=== PATIENT | female | born 1930 | race Caucasian/White ===

== ENCOUNTER 2019-03-07 17:31 | Observation (INO) | payer OTHER ==
--- NOTE | 2019-03-07 17:41 | EDPHY ---
HPI/HX/ROS/PE/MDM Narrative: CHIEF COMPLAINT: Altered mental status HPI: This patient is an anticoagulated (Coumadin) 88 year old female with history of dementia, CHF, hypothyroid. She is currently visiting from [place], family is at bedside. Her daughter notes that yesterday she seemed quiet, but well. Today, she has been irritable and behaving abnormally. She disappeared in a store earlier today, pulled her pants down and urinated in public. Her daughters note she does not seem to recognize them, which is unusual. They endorse similar occurrences when the patient has been admitted for CHF in the past. The patient has not endorsed any chest pain to her daughters. They have not observed any notable unilateral weakness, but did notice that she seemed somewhat off- balance today. They deny any recent trauma including head injuries. No fever. HPI obtained primarily from patient's daughters at bedside, as the patient is not speaking. REVIEW OF SYSTEMS: A comprehensive 10 system review of systems is otherwise negative aside from elements mentioned in the history of present illness and medical decision making. PMH: Dementia, CHF, hypothyroid. Anticoagulated (Coumadin) SOCIAL HISTORY: Lives in [place]. Daughters at bedside. PHYSICAL EXAM: General:Patient is awake, and interactive, but not speaking. In no acute distress. ENT:Eyes are normal to inspection. Edentulous. ENT inspection otherwise normal. Neck: Normal inspection. Full range of motion. Respiratory:No respiratory distress. Breath sounds normal bilaterally. Cardiovascular: Regular rate and rhythm. Strong peripheral pulses. Normal cap refill. Abdomen:The abdomen is nontender to palpation. There are no peritoneal signs. There are normal bowel sounds. Back: Normal to inspection. No tenderness to palpation. Skin: Normal color. No rash. Warm and dry. Extremities: Normal appearance. Full range of motion. Neuro: No focal deficits. ED Course: Anticoagulated 88 y/o female with history of dementia, CHF, and hypothyroidism presents with altered mental status. Plan for CT head, EKG, chest x-ray, labs including CBC, chemistries, BNP, UA, coag panel, POC troponin. EKG was ordered and interpreted by myself. Please see [employer] system for official reading. Reviewed laboratory studies. POC troponin negative. Labs notable for elevated BNP. 18:[address] Tamez, radiologist. CT is negative for acute intracranial processes. Small hypodensity in the left occiput may be consistent with patient's prior fall with subsequent bleed. Age-appropriate atrophy noted. Reassessed patient. Discussed admission with patient's family. They are amenable to this. 19:[address] Benito, hospitalist. He accepts admission for altered mental status. - Data Points Imaging Results: Imaging Impressions Chest X-Ray 03/07/19 17:52 Impression: Cardiomegaly with no definite acute findings. Head CT 03/07/19 17:53 Impression: Equivocal left occipital ischemic infarct versus findings related to a remote insult. Final concordant results called to Dr. Moreno at 6:15 PM General information for patients regarding this examination can be found at [email or web address] If you have questions or comments about this report, please contact me at [phone] (hospital) or [phone] (cell). Imaging: Discussed imaging studies w/ food safety scientist Radiologist Laboratory Results: Laboratory Results 03/07/19 18:15 03/07/19 18:15 03/07/19 03/07/19 03/07/19 18:26 18:15 18:15 WBC RBC Hgb Hct MCV MCH MCHC RDW Plt Count MPV Neut % (Auto) Lymph % (Auto) [place] % (Auto) Eos % (Auto) Baso % (Auto) Nucleat RBC Rel Count Absolute Neuts (auto) Absolute Lymphs (auto) Absolute Monos (auto) Absolute Eos (auto) Absolute Basos (auto) Absolute Nucleated RBC Immature Gran % Immature Gran # PT 22.1 SEC H SEC (12.0-15.0) INR 2.05 H (0.83-1.16) APTT 29.9 SEC SEC (23.0-38.0) Sodium Potassium Chloride Carbon Dioxide Anion Gap BUN Creatinine Estimated GFR Glucose Calcium POC Troponin I 0.00 ng/mL ng/mL (0.00-0.08) NT-Pro-B Natriuret Pep Urine Color PALE YELLOW Urine Appearance CLEAR Urine pH 5.0 (5.0-7.5) Ur Specific [place] 1.006 (1.002-1.030) Urine Protein NEGATIVE (NEGATIVE) Urine Ketones NEGATIVE (NEGATIVE) Urine Blood 1+ H (NEGATIVE) Urine Nitrate NEGATIVE (NEGATIVE) Urine Bilirubin NEGATIVE (NEGATIVE) Urine Urobilinogen NEGATIVE EU EU (0.2-1.0) Ur Leukocyte Esterase NEGATIVE (NEGATIVE) Urine RBC 1-3 /hpf /hpf (0-3) Urine WBC 1-3 /hpf /hpf (0-3) Ur Epithelial Cells TRACE /lpf /lpf (NONE-1+) Hyaline Casts 1-5 /lpf /lpf (0-1) Urine Mucus TRACE /lpf /lpf (NONE-1+) Urine Glucose NEGATIVE (NEGATIVE) 03/07/19 03/07/19 18:15 18:15 WBC 5.77 10^3/uL 10^3/uL (3.80-9.50) RBC 4.87 10^6/uL 10^6/uL (4.18-5.33) Hgb 14.9 g/dL g/dL (12.6-16.3) Hct 44.9 % % (38.0-47.0) MCV 92.2 fL fL (81.5-99.8) MCH 30.6 pg pg (27.9-34.1) MCHC 33.2 g/dL g/dL (32.4-36.7) RDW 14.7 % % (11.5-15.2) Plt Count 112 10^3/uL L 10^3/uL (150-400) MPV 12.1 fL H fL (8.7-11.7) Neut % (Auto) 65.2 % % (39.3-74.2) Lymph % (Auto) 23.9 % % (15.0-45.0) Cottle % (Auto) 9.5 % % (4.5-13.0) Eos % (Auto) 0.3 % L % (0.6-7.6) Baso % (Auto) 0.9 % % (0.3-1.7) Nucleat RBC Rel Count 0.0 % % (0.0-0.2) Absolute Neuts (auto) 3.76 10^3/uL 10^3/uL (1.70-6.50) Absolute Lymphs (auto) 1.38 10^3/uL 10^3/uL (1.00-3.00) Absolute Monos (auto) 0.55 10^3/uL 10^3/uL (0.30-0.80) Absolute Eos (auto) 0.02 10^3/uL L 10^3/uL (0.03-0.40) Absolute Basos (auto) 0.05 10^3/uL 10^3/uL (0.02-0.10) Absolute Nucleated RBC 0.00 10^3/uL 10^3/uL (0-0.01) Immature Gran % 0.2 % % (0.0-1.1) Immature Gran # 0.01 10^3/uL 10^3/uL (0.00-0.10) PT INR APTT Sodium 138 mEq/L mEq/L (135-145) Potassium 3.8 mEq/L mEq/L (3.5-5.2) Chloride 98 mEq/L mEq/L (97-110) Carbon Dioxide 30 mEq/l mEq/l (22-31) Anion Gap 10 mEq/L mEq/L (6-14) BUN 27 mg/dL H mg/dL (7-23) Creatinine 1.0 mg/dL mg/dL (0.6-1.0) Estimated GFR 52 Glucose 117 mg/dL H mg/dL (70-100) Calcium 9.5 mg/dL mg/dL (8.5-10.4) POC Troponin I NT-Pro-B Natriuret Pep 4630 pg/mL H pg/mL (0-450) Urine Color Urine Appearance Urine pH Ur Specific [place] Urine Protein Urine Ketones Urine Blood Urine Nitrate Urine Bilirubin Urine Urobilinogen Ur Leukocyte Esterase Urine RBC Urine WBC Ur Epithelial Cells Hyaline Casts Urine Mucus Urine Glucose Point of Care Test Results: Chemistry 03/07/19 18:26 POC Troponin I 0.00 ng/mL ng/mL (0.00-0.08) General Time Seen by Provider: 03/07/19 17:40 Initial Vital Signs: Initial Vital Signs Temperature (C) 37.1 C 03/07/19 17:35 Heart Rate 103 H 03/07/19 17:35 Respiratory Rate 19 03/07/19 17:35 Blood Pressure 127/98 H 03/07/19 17:35 O2 Sat (%) 92 03/07/19 17:35 O2 Delivery Mode Room Air Allergies/Adverse Reactions: No Known Allergies Allergy (Unverified 03/07/19 17:32) Home Medications: Medication Instructions Recorded Donepezil HCl [Aricept 5 MG (*)] 5 mg PO HS 03/07/19 Herbals/Supplements -Info Only 1 ea PO DAILY 03/07/19 Letrozole [Femara 2.5 mg (*)] 2.5 mg PO DAILY 03/07/19 Levothyroxine [Synthroid 125 mcg 125 mcg PO DAILY06 03/07/19 (*)] Magnesium Oxide [Magnesium Oxide 400 mg PO DAILY 03/07/19 400 mg (*)] Metolazone [Zaroxolyn] 2.5 mg PO AD 03/07/19 Metoprolol Tartrate [Lopressor 25 25 mg PO BID 03/07/19 mg (*)] Mirtazapine 7.5 mg PO DAILY 03/07/19 Nitroglycerin [Nitrostat 0.4 mg 0.4 mg SL Q5M PRN 03/07/19 (*)] Potassium Cl [Klor-Con 20 meq (*)] 20 meq PO DAILY 03/07/19 Torsemide [Demadex] 20 mg PO DAILY10 03/07/19 Warfarin Sodium 6 mg PO HS 03/07/19 Departure - Departure Disposition: [facility] Acute Clinical Impression: Altered mental status Qualifiers: Altered mental status type: unspecified Qualified Code(s): R41.82 - Altered mental status, unspecified Condition: Fair Report Scribed for: River Moreno Report Scribed by: Radha Gotti Date of Report: 03/07/19 Time of Report: 17:41 Physician Review and Approval Statement: Portions of this note were transcribed by an ED scribe. I personally performed the history, physical exam, and medical decision making; and confirm the accuracy of the information in the transcribed note.
[2019-03-07 18:40] LABS: INR 2.05 (0.83-1.16); PROTIME(PATIENT) 22.1 SEC (12.0-15.0)
[2019-03-07 18:48] LABS: PLATELET COUNT 112 10^3/uL (150-400)
[2019-03-07] MEDS ORDERED: ONDANSETRON 4 MG/2 ML VIAL IVP PRN (20:49)
[2019-03-07] MEDS ORDERED: ACETAMINOPHEN 325 MG TAB PO PRN (20:49)
[2019-03-07] MEDS ORDERED: MELATONIN 3 MG TAB PO SCH (21:00)
--- NOTE | 2019-03-07 22:31 | CPEKG ---
Test Reason : OPEN Blood Pressure : / mmHG Vent. Rate : 101 BPM Atrial Rate : 000 BPM P-R Int : 172 ms QRS Dur : 092 ms QT Int : 384 ms P-R-T Axes : 000 236 021 degrees QTc Int : 498 ms Atrial fibrillation Ventricular premature complex Markedly posterior QRS axis Consider right ventricular hypertrophy Consider anterior infarct Confirmed by River Moreno ([id number]) on 03/07/2019 10:31:06 PM Referred By: River Moreno Confirmed By:River Moreno
--- NOTE | 2019-03-08 00:36 | PDGENHP ---
History and Physical - Chief Complaint Confusion - History of Present Illness 88 yo F w/ hx of dementia, CHF, and atrial fibrillation presents to ED with reports of confusion and agitation. Patient is [place] of [place]. The majority of the history is obtained from the chart as the patient is demented, A &Ox1, and unable to provide any history. She denies any complaints to me and is pain free. Per report, the patient exhibited significant confusion and agitation today. She wandered off in a store and was found urinating in public. At this point she was brought in to the ED for evaluation. Evaluation in the ED is mostly reassuring with normal vital signs and metabolic work-up. Her neurologic exam is non-focal. CT of the head does demonstrate a L occipital lesion, but this does not appear acute. She is being admitted for observation. Case discussed with Dr. Benito; records reviewed and summarized above. History Information - Allergies/Home Medication List Allergies/Adverse Reactions: No Known Allergies Allergy (Unverified 03/07/19 17:32) Home Medications: Donepezil HCl [Aricept 5 MG (*)] 5 mg PO HS 03/07/19 [Last Taken Unknown] Herbals/Supplements -Info Only 1 ea PO DAILY 03/07/19 [Last Taken Unknown] Letrozole [Femara 2.5 mg (*)] 2.5 mg PO DAILY 03/07/19 [Last Taken Unknown] Levothyroxine [Synthroid 125 mcg (*)] 125 mcg PO DAILY06 03/07/19 [Last Taken Unknown] Magnesium Oxide [Magnesium Oxide 400 mg (*)] 400 mg PO DAILY 03/07/19 [Last Taken Unknown] Metolazone [Zaroxolyn 2.5 mg (RX)] 2.5 mg PO AD 03/07/19 [Last Taken Unknown] Metoprolol Tartrate [Lopressor 25 mg (*)] 25 mg PO BID 03/07/19 [Last Taken Unknown] Mirtazapine 7.5 mg PO DAILY 03/07/19 [Last Taken Unknown] Nitroglycerin [Nitrostat 0.4 mg (*)] 0.4 mg SL Q5M PRN 03/07/19 [Last Taken Unknown] Potassium Cl [Klor-Con 20 meq (*)] 20 meq PO DAILY 03/07/19 [Last Taken Unknown] Torsemide [Demadex] 20 mg PO DAILY10 03/07/19 [Last Taken Unknown] Warfarin Sodium 6 mg PO HS 03/07/19 [Last Taken Unknown] I have personally reviewed and updated: family history, medical history - Past Medical History atrial fibrillation, CHF, dementia - Surgical History Additional surgical history: Unable to provide due to dementia - Family History Additional family history: Unable to provide due to dementia - Social History Smoking Status: Never smoked Review of Systems Review of Systems: Unable to provide due to dementia Physical Exam Physical Exam: Temp Pulse Resp BP Pulse Ox 36.4 C 99 18 187/99 H 87 L 03/07/19 19:59 03/07/19 19:59 03/07/19 19:59 03/07/19 19:26 03/07/19 19:59 Constitutional: no apparent distress, not in pain Eyes: PERRL, EOMI Ears, Nose, Mouth, Throat: moist mucous membranes, no oral mucosal ulcers Cardiovascular: systolic murmur, irregularly irregular Respiratory: no respiratory distress, clear to auscultation Gastrointestinal: normoactive bowel sounds, soft, non-tender abdomen Skin: warm, normal color Neurologic: CN II-XII Intact, other (A&Ox1) Psychiatric: interacting appropriately, encephalopathic, poor insight, poor memory Lab Data & Imaging Review 03/07/19 18:15 03/07/19 18:15 WBC 5.77 10^3/uL (3.80-9.50) 03/07/19 18:15 RBC 4.87 10^6/uL (4.18-5.33) 03/07/19 18:15 Hgb 14.9 g/dL (12.6-16.3) 03/07/19 18:15 Hct 44.9 % (38.0-47.0) 03/07/19 18:15 MCV 92.2 fL (81.5-99.8) 03/07/19 18:15 MCH 30.6 pg (27.9-34.1) 03/07/19 18:15 MCHC 33.2 g/dL (32.4-36.7) 03/07/19 18:15 RDW 14.7 % (11.5-15.2) 03/07/19 18:15 Plt Count 112 10^3/uL (150-400) L 03/07/19 18:15 MPV 12.1 fL (8.7-11.7) H 03/07/19 18:15 Neut % (Auto) 65.2 % (39.3-74.2) 03/07/19 18:15 Lymph % (Auto) 23.9 % (15.0-45.0) 03/07/19 18:15 [place] % (Auto) 9.5 % (4.5-13.0) 03/07/19 18:15 Eos % (Auto) 0.3 % (0.6-7.6) L 03/07/19 18:15 Baso % (Auto) 0.9 % (0.3-1.7) 03/07/19 18:15 Nucleat RBC Rel Count 0.0 % (0.0-0.2) 03/07/19 18:15 Absolute Neuts (auto) 3.76 10^3/uL (1.70-6.50) 03/07/19 18:15 Absolute Lymphs (auto) 1.38 10^3/uL (1.00-3.00) 03/07/19 18:15 Absolute Monos (auto) 0.55 10^3/uL (0.30-0.80) 03/07/19 18:15 Absolute Eos (auto) 0.02 10^3/uL (0.03-0.40) L 03/07/19 18:15 Absolute Basos (auto) 0.05 10^3/uL (0.02-0.10) 03/07/19 18:15 Absolute Nucleated RBC 0.00 10^3/uL (0-0.01) 03/07/19 18:15 Immature Gran % 0.2 % (0.0-1.1) 03/07/19 18:15 Immature Gran # 0.01 10^3/uL (0.00-0.10) 03/07/19 18:15 PT 22.1 SEC (12.0-15.0) H 03/07/19 18:15 INR 2.05 (0.83-1.16) H 03/07/19 18:15 APTT 29.9 SEC (23.0-38.0) 03/07/19 18:15 Sodium 138 mEq/L (135-145) 03/07/19 18:15 Potassium 3.8 mEq/L (3.5-5.2) 03/07/19 18:15 Chloride 98 mEq/L (97-110) 03/07/19 18:15 Carbon Dioxide 30 mEq/l (22-31) 03/07/19 18:15 Anion Gap 10 mEq/L (6-14) 03/07/19 18:15 BUN 27 mg/dL (7-23) H 03/07/19 18:15 Creatinine 1.0 mg/dL (0.6-1.0) 03/07/19 18:15 Estimated GFR 52 03/07/19 18:15 Glucose 117 mg/dL (70-100) H 03/07/19 18:15 Calcium 9.5 mg/dL (8.5-10.4) 03/07/19 18:15 POC Troponin I 0.00 ng/mL (0.00-0.08) 03/07/19 18:26 NT-Pro-B Natriuret Pep 4630 pg/mL (0-450) H 03/07/19 18:15 Urine Color PALE YELLOW 03/07/19 18:15 Urine Appearance CLEAR 03/07/19 18:15 Urine pH 5.0 (5.0-7.5) 03/07/19 18:15 Ur Specific [place] 1.006 (1.002-1.030) 03/07/19 18:15 Urine Protein NEGATIVE (NEGATIVE) 03/07/19 18:15 Urine Ketones NEGATIVE (NEGATIVE) 03/07/19 18:15 Urine Blood 1+ (NEGATIVE) H 03/07/19 18:15 Urine Nitrate NEGATIVE (NEGATIVE) 03/07/19 18:15 Urine Bilirubin NEGATIVE (NEGATIVE) 03/07/19 18:15 Urine Urobilinogen NEGATIVE EU (0.2-1.0) 03/07/19 18:15 Ur Leukocyte Esterase NEGATIVE (NEGATIVE) 03/07/19 18:15 Urine RBC 1-3 /hpf (0-3) 03/07/19 18:15 Urine WBC 1-3 /hpf (0-3) 03/07/19 18:15 Ur Epithelial Cells TRACE /lpf (NONE-1+) 03/07/19 18:15 Hyaline Casts 1-5 /lpf (0-1) 03/07/19 18:15 Urine Mucus TRACE /lpf (NONE-1+) 03/07/19 18:15 Urine Glucose NEGATIVE (NEGATIVE) 03/07/19 18:15 Imaging Review: Imaging Impressions Chest X-Ray 03/07/19 17:52 Impression: Cardiomegaly with no definite acute findings. Head CT 03/07/19 17:53 Impression: Equivocal left occipital ischemic infarct versus findings related to a remote insult. Final concordant results called to Dr. Moreno at 6:15 PM General information for patients regarding this examination can be found at [email or web address]. If you have questions or comments about this report, please contact me at (hospital) or [phone] (cell). Visualized and Interpreted EKG results: Yes EKG Interpretation: Positive for: other (Atrial fibrillation) Assessment & Plan Assessment: 88 yo F w/ dementia, CHF, and atrial fibrillation presents with confusion. Plan: 1. Acute encephalopathy with baseline dementia - Per her daughter she is confused beyond baseline. She is calm and cooperative during my evaluation but A &Ox1. CTH does demonstrate L occipital lesion but this is of unclear acuity. Metabolic work-up and UA unremarkable. She appears euvolemic clinically. It is possible this is due to recent change in environment in the setting of chronic dementia. - Admit for observation - Will ask neurology to see noting abnormal head imaging - ED requested prior head imaging from [place] for comparison but this has not arrived - PT/OT evaluations 2. Atrial fibrillation - On warfarin and metoprolol as an outpatient. - Continue home medications - Monitor daily INR 3. CHF - Unclear details; patient has elevated BNP but appears euvolemic on exam. - Continue home diuretics - Daily weights, cardiac diet, Monitor I/Os 4. Hypothyroid - Continue LTX Diet - Cardiac Code - Full Ppx - warfarin Dispo - Admit under observation status
[2019-03-08] MEDS ORDERED: METOLAZONE 2.5 MG TAB PO PRN (00:45)
[2019-03-08 05:46] LABS: INR 1.83 (0.83-1.16); PROTIME(PATIENT) 20.3 SEC (12.0-15.0)
[2019-03-08 05:47] LABS: PLATELET COUNT 92 10^3/uL (150-400)
[2019-03-08] MEDS ORDERED: LEVOTHYROXINE 125 MCG TAB PO SCH (06:00)
[2019-03-08] MEDS ORDERED: MIRTAZAPINE 15 MG TAB PO SCH (09:00)
[2019-03-08] MEDS ORDERED: LETROZOLE 2.5 MG TAB PO SCH (09:00)
[2019-03-08] MEDS ORDERED: METOPROLOL TARTRATE 25 MG TAB PO SCH (09:00)
[2019-03-08] MEDS ORDERED: MAGNESIUM OXIDE 400 MG TAB PO SCH (09:00)
[2019-03-08] MEDS ORDERED: TORSEMIDE 20 MG TAB PO SCH (10:00)
--- NOTE | 2019-03-08 10:41 | NEUROPROG ---
Assessment: [id number] - Neurology Consult: - CC: Agitation, abnormal Head CT - HPI: 03/08/19: Pt with PMHx of dementia, CHF, afib on warfarin who was [place] from [place] of [place] and became confused. She was brought to [facility] ER where head CT showed possible stroke on 03/07/19. Neurologic exam on 03/08/19 consistent with dementia but no focal deficits. Discussed case with her and her daughter and they both feel pt at baseline. I will get brain MRI wo to ensure no acute stroke but if this is unremarkable for acute stroke then pt can discharge with daughter and f/u with her PCM upon return to her home. - PMHx: afib, CHF, dementia - SHx: cannot provide due to dementia FHx: cannot provide due to dementia - ROS: Pt denied acute fever, total vision loss, active severe chest pain, respiratory failure, total body severe rash, total bowel/bladder incontinence, psychosis, active seizures, or active bleeding - O: VS reviewed General: Alert Eyes: Fundoscopic exam not able to visualize optic disks CV: Heart RRR, no murmur, no carotid bruit Lungs: Clear to auscultation bilaterally, no rhonchi or rales Neuro: - Mental: . Oriented x person but not place/date . concentration appears normal . speech fluency/comprehension normal . memory appears reduced . fund of knowledge appear intact - Cranial Nerves: . II: PERRL, VFFTC . III/IV/: EOMI, no nystagmus, normal smooth pursuits, no Ptosis . V: facial sensation intact to LT . VII: face symmetric to eye closure and smile . VIII: hearing intact to conversation . IX/X: uvula raises symmetrically . XI: SCM 5/5 B/L strength . XII: tongue protrudes midline w/nl strength - Motor: . Tone: normal tone in all 4 extremity . Strength: no pronator drift, strength 5/5 throughout (B/L delt, bic, tri, hand hand hose cutter, hf/he, df/pf) - Reflexes: B/L bic 2/4 - Sensory: all 4 extremity intact to light touch - Coord: [id number] wnl, YONI wnl, gcga-ji-[id number] wnl - Gait: deferred - Labs: 03/07/19- CBC Plt 111L, INR 2.05, Chem BUN 27H - Rads: 03/07/19- Head CT wo: Equivocal left occipital ischemic infarct versus findings related to a remote insult (I personally visualized the images on 03/08/19) - Assessment: 1. Dementia with superimposed acute confusional state: Likely baseline dementia made her vulnerable to an acute confusional state. Pt now back to baseline. - 2. Abnl Head CT: Will get brain MRI wo to ensure no acute stroke. - Plan: - Brain MRI wo (if no acute changes then pt can discharge and f/u with PCM at her home) - Neurology will give further recs if any acute changes noted on brain MRI, else will sign off Objective: Vital Signs Temp Pulse Resp BP Pulse Ox 36.5 C 87 20 172/87 H 90 L 03/08/19 09:00 03/08/19 09:00 03/08/19 09:00 03/08/19 09:00 03/08/19 09:00 Laboratory Results 03/08/19 04:29 03/08/19 04:29 03/07/19 03/08/19 03/09/19 05:59 05:59 05:59 Intake Total 200 Balance 200 PT 20.3 SEC (12.0-15.0) H 03/08/19 05:08 INR 1.83 (0.83-1.16) H 03/08/19 05:08 Allergies/Adverse Reactions: No Known Allergies Allergy (Unverified 03/07/19 17:32)
[2019-03-08] MEDS ORDERED: PROTOCOL POTASSIUM 1 DOSE MISC PRN (11:13)
[2019-03-08] MEDS ORDERED: POTASSIUM CL 10 MEQ TAB PO ONE (11:20)
--- NOTE | 2019-03-08 11:55 | ASMTCMCOM ---
CM Note CM Note Notes: Pt was admitted through the ED last night for increased confusion and agitation. She has dementia and a history of CHF. CM met with pt's two daughters in her room today: Luis Crsitina [phone] and Angela [phone]. Luis lives in [place] with the pt and Angela lives in [place], [place]. PT has been seen by PT and OT. PT does not identify any needs. OT recommends 24-hour supervision at home. Angela plans to have pt live with her in [place] for at least a month and will provide 24-hour supervision. The daughters will re-evaluate her needs after that time. While pt is living with her, Angela will supply and provide all meds and will take her to [facility] in [place] to have her INR monitored; this has been arranged by pt's dietary worker in [place]. Currently pt is having MRI to rule out stroke. CM will continue to follow. CM D/C plan: Home with daughter with 24-hour supervision. Date Signed: 03/08/2019 11:54 AM Electronically Signed By:Lainey Clancy
[2019-03-08 12:47] VITALS: BP 138/76
[2019-03-08] MEDS ORDERED: DONEPEZIL HCL 5 MG TAB PO SCH (21:00)
[2019-03-08] MEDS ORDERED: WARFARIN SODIUM 3 MG TAB PO SCH (21:00)
[2019-03-08] MEDS ORDERED: WARFARIN SODIUM 2 MG TAB PO ONE (21:00)
--- NOTE | 2019-03-09 02:53 | GDS ---
[f rep st] DISCHARGE SUMMARY DISCHARGE DIAGNOSES: 1. Metabolic encephalopathy. 2. Advanced dementia. 3. Atrial fibrillation. 4. Congestive heart failure. HISTORY: The patient is an 88-year-old female visiting from [place] with her daughter whom she lives w [facility] in [place] and provides 21/05 care. They are visiting. She is here visiting her other daughter who lives in [place]. She presented to the emergency room when she developed severe confusion extremely d ifferent from baseline. Her daughter had never seen her like this. She was completely disoriented. They were in a furniture store, and she wandered off and pulled down her pants and urinated on one o f the couches thinking it was a toilet. They presented to the emergency room. Head CT was negative. Neuro exam was nonfocal. Neurology did see her in consultation. They did recommend a brain MRI [facility] to make sure it was a stroke. The patient could not lie still enough to do the brain MRI. Johnal l my clinical impression is this is most likely metabolic encephalopathy due to sleep disturbance and new environment as a result of strenuous travel out of state. The patient has at the time of discha rge returned to baseline according to her daughter. They are flying back to [place] tomorrow and can f ollow up closely with her primary care doctor there. DISCHARGE MEDICATIONS: Please see computerized record for full detailed list. There are no new medi cations given at the time of hospital discharge. ADDITIONAL DISCHARGE INSTRUCTIONS: Follow up with primary care back in [place]. /[id number]/MODL
== END 2019-03-08 13:33 | disposition home or self-care (01) ==
LOC: F3E 19:55
PROVIDERS: ADMIT Student in an Organized Health Care Education/Training Program; ATTEND Internal Medicine
DX: G93.41 Metabolic encephalopathy (principal); F03.90 Unspecified dementia, unspecified severity, without behavioral disturbance, psychotic disturbance, mood disturbance, and anxiety; I48.91 Unspecified atrial fibrillation; Z79.01 Long term (current) use of anticoagulants; I50.9 Heart failure, unspecified
CPT/HCPCS: 70450; 70551; 71045; 92523; 93005; 97161; 97165; 99285; G0378; 84484-ER